=== PATIENT | female | born 1960 | race Caucasian/White ===

== ENCOUNTER 2017-04-03 17:08 | Inpatient (IN) | payer OTHER ==
[~2017-04-03] VITALS: Ht 154.9 cm; Wt 71.4 kg
--- NOTE | 2017-04-03 17:10 | NUR ---
PT BIBA ON PEER AFTER FRIEND CALLED 911 ON PT FOR POSSIBLE SI. PT DENIES SI OR HI. PT STATES SHE WAS AT "[facility]" [facility]ICH IS KNOWN A CRACK HOUSE FOR THE PAST 72 HOURS AND THAT SHE CALLED HER FRIEND JAMARCUS, WHO IS HER FRIEND BUT ALSO HER COUNSELOR. JAMARCUS CALLED 911 AND REPORTED THAT PT WAS SUICIDAL. PT STATES THAT SHE IS ON PROBATION AND HER PO'S NAME IS JOHN. PT IS HYPERVERBAL ON ARRIVAL AND THROUGHOUT CHANGING PROCESS. SITTER AT DOOR. SECURITY PRESENT FOR WANDING AND PT CHANGED INTO BLUE SCRUBS
--- NOTE | 2017-04-03 17:10 | NUR ---
ORIGINAL PEER PLACED IN LOCK BOX AND COPY PLACED IN CHART
--- NOTE | 2017-04-03 17:30 | NUR ---
DR DOWLING IN ROOM FOR EVALUATION
--- NOTE | 2017-04-03 17:36 | ED GENERAL ADULT ---
History of Present Illness General Chief Complaint: ETOH/Drug Related Complaint Stated Complaint: BIBA ETOH Source: patient, EMS, police Exam Limitations: intoxication Vital Signs & Intake/Output Vital Signs & Intake/Output Vital Signs Date Time Temp Pulse Resp B/P B/P Pulse O2 O2 Flow FiO2 Mean Ox Delivery Rate 04/04 1422 99.9 77 18 130/64 96 / 0845 98.3 82 18 112/74 04/04 0845 98.3 82 15 112/74 100 Room Air 04/04 0645 98.6 67 18 105/55 04/04 0640 98.6 67 18 105/55 96 Room Air 04/04 0445 98.5 72 16 110/65 04/04 0440 98.5 72 16 110/65 94 Room Air 04/04 0245 98.4 80 16 120/76 04/04 0240 98.4 80 16 120/76 95 Room Air 04/03 2234 98.2 84 16 122/76 94 Room Air 04/03 1846 Room Air 04/03 1715 98.2 98 16 124/85 94 Room Air Allergies Coded Allergies: No Known Allergies (04/03/17) Reconcile Medications No Known Home Medications Triage Note: PT BIBA ON PEER FOR SI REPORTED BY FRIEND AND PT HAS BEEN SMOKING CRACK AND DRINKING X72 HOURS. PT DENIES SI OR HI. PT REPORTS RECENT ETOH USE. Triage Nurses Notes Reviewed? yes HPI: Patient brought in by ambulance on a police paper. Patient has been in a crack house with past 3 days small crack. Patient reached out to her friend for help. Her friends were concerned for her safety. Patient denies any suicidal or homicidal ideations but states that she really needs help. Patient states that she is staying at a sober house but people are using heroin there. Patient denies any hallucinations. (JOSEY FLOWERS,CAMRON Reyes) Past History Travel History Traveled to [place] past 21 day No Medical History Any Pertinent Medical History? see below for history Psychiatric: alcohol dependence Surgical History Surgical History: non-contributory Psychosocial History What is your primary language Wolof Tobacco Use: Current Not Daily ETOH Use: heavy use Illicit Drug Use: cocaine Family History Hx Contributory? No (CAMRON DOWLING MD) Review of Systems Review of Systems Constitutional: Reports: no symptoms. EENTM: Reports: no symptoms. Respiratory: Reports: no symptoms. Cardiovascular: Reports: no symptoms. GI: Reports: no symptoms. Genitourinary: Reports: no symptoms. Musculoskeletal: Reports: no symptoms. Skin: Reports: no symptoms. Neurological/Psychological: Reports: no symptoms. Hematologic/Endocrine: Reports: no symptoms. Immunologic/Allergic: Reports: no symptoms. All Other Systems: Reviewed and Negative (JOSEY FLOWERS,CAMRON Reyes) Physical Exam Physical Exam General Appearance: well developed/nourished, alert, awake, anxious, moderate distress Head: atraumatic, normal appearance Eyes: Bilateral: PERRL, EOMI. Ears, Nose, Throat: normal pharynx, normal ENT inspection Neck: normal inspection, supple, full range of motion Respiratory: normal breath sounds, chest non-tender, no respiratory distress, lungs clear Cardiovascular: regular rate/rhythm, normal peripheral pulses Gastrointestinal: normal bowel sounds, soft, non-tender, no organomegaly Back: normal inspection, normal range of motion Extremities: normal inspection, normal capillary refill, normal range of motion, no edema Neurologic/Psych: no motor/sensory deficits, awake, alert, oriented x 3, normal gait, normal mood/affect Skin: intact, normal color Lymphatic: no anterior cervical aurelia Core Measures ACS in differential dx? No CVA/TIA Diagnosis: No Severe Sepsis Present: No Septic Shock Present: No (JOSEY FLOWERS,CAMRON Reyes) Progress Differential Diagnoses I considered the following diagnoses in my evaluation of the patient: [Alcohol intoxication, crack abuse, electrolyte abnormality] Plan of Care: Orders Procedure Date/time Status Regular Diet 04/04 B Active Admit to inpatient psych 04/04 1457 Active Continuous Observation Monitor 04/04 0400 Active CIWA 04/04 0244 Active Continuous Observation Monitor 04/04 0000 Active Continuous Observation Monitor 04/03 1835 Active ED CRISIS PSYCH CONSULT 04/03 1835 Active URINE DRUGS OF ABUSE 04/03 1748 Complete HUMAN BETA HCG SCREEN 04/03 1748 Complete ETHANOL 04/03 1748 Complete COMPREHENSIVE METABOLIC PANEL 04/03 1748 Complete CBC WITHOUT DIFFERENTIAL 04/03 1748 Complete Laboratory Tests 04/03/17 1904: Urine Opiates Screen < 100.00, Methadone Screen 50, Barbiturate Screen < 60, Ur Phencyclidine Scrn < 6.00, Amphetamines Screen 124, U Benzodiazepines Scrn < 85, Urine Cocaine Screen > 1000 H, Urine Cannabis Screen < 5.00 04/03/17 1840: Anion Gap 18 H, Estimated GFR > 60, BUN/Creatinine Ratio 13.3, Glucose 91, Calcium 9.3, Total Bilirubin 1.0, AST 158 H, ALT 208 H, Alkaline Phosphatase 118, Total Protein 8.8 H, Albumin 5.2 H, Globulin 3.6, Albumin/Globulin Ratio 1.4, Total Beta HCG NEGATIVE, CBC w Diff NO MAN DIFF REQ, RBC 5.43 H, MCV 87.0, MCH 29.2, RDW 13.4, MPV 7.6, Gran % 62.4, Lymphocytes % 30.8, Monocytes % 5.4, Eosinophils % 0.8, Basophils % 0.6, Absolute Granulocytes 7.7 H, Absolute Lymphocytes 3.8 H, Absolute Monocytes 0.7 H, Absolute Eosinophils 0.1, Absolute Basophils 0.1, PUBS MCHC 33.5, Serum Alcohol 259.0 7:20 AM Patient signed out to me by Dr. Mahoney. Pending crisis evaluation. (JANET TELLEZ MD) Initial ED EKG: none Hand-Off Endorsed To: DONELL MAHONEY MD Endorsed Time: 0100 Pending: consult (CAMRON DOWLING MD) Hand-Off Endorsed To: JANET TELLEZ MD Endorsed Time: 0700 Pending: consult (DONELL MAHONEY MD) Departure Departure Disposition: STILL A PATIENT Condition: Stable Departure Forms: Customer Survey General Discharge Information Prescriptions: Current Visit Scripts No Known Home Medications (CAMRNO DOWLING MD) Departure Time of Disposition: 1456 Clinical Impression Primary Impression: Cocaine abuse Secondary Impressions: Alcohol intoxication, Depressed Psych Admission Note Psychiatric Admission: I have seen and evaluated TERESA STAPLETON. I have also reviewed all the pertinent lab results and diagnostic results. TERESA STAPLETON will be admitted to our inpatient Psychiatric unit for treatment and care. (JANET TELLEZ MD) Critical Care Note Critical Care Note Critical Care Time: non-applicable (CAMRON DOWLING MD)
--- NOTE | 2017-04-03 18:30 | NUR ---
DR DOWLING IN ROOM FOR MAYUR
--- NOTE | 2017-04-03 18:40 | NUR ---
LABS DRAWN AND SENT (SST,LAV)
--- NOTE | 2017-04-03 18:46 | NUR ---
PT MEDICATED WITH ATIVAN 2MG PO PT REMAINS HYPERVERBAL. SITTER AT DOOR.
[2017-04-03 19:04] LABS: ABSOLUTE BASOPHIL COUNT 0.1 /CUMM (0.0-0.2); ABSOLUTE EOSINOPHIL COUNT 0.1 /CUMM (0.0-0.7); ABSOLUTE GRANULOCYTE CT 7.7 /CUMM (1.4-6.5); ABSOLUTE LYMPH COUNT 3.8 /CUMM (1.2-3.4); ABSOLUTE MONOCYTE COUNT 0.7 /CUMM (0.10-0.60); BASOPHIL % 0.6 % (0.0-2.0); EOSINOPHIL % 0.8 % (0-5); GRANULOCYTE % 62.4 % (42.2-75.2); HEMATOCRIT 47.2 % (37-47); MEAN CORPUSCULAR HGB 29.2 PG (27.0-31.0); MEAN CORPUSCULAR HGB CONC 33.5 G/DL (33.0-37.0); MEAN PLATELET VOLUME 7.6 FL (7.4-10.4); PLATELET COUNT 291 /CUMM (130-400); RBC DISTRIBUTION WIDTH 13.4 % (11.5-14.5); RED BLOOD CELL CT 5.43 /CUMM (4.20-5.40); WHITE BLOOD CELL COUNT 12.3 /CUMM (4.8-10.8)
--- NOTE | 2017-04-03 19:32 | NUR ---
PT ASLEEP AT THIS TIME ON HER LEFT SIDE, FACING DOOR. RESPIRATIONS EQUAL AND UNLABORED. SITTER AT DOOR.
--- NOTE | 2017-04-03 20:25 | ED PSY CRISIS COLLATERAL NOTE ---
Collateral Note Collateral Note Family/Inform/Lois Contacts: A Crisis consult was received, however the patient has a BAL of .259 and is not appropriate for interview at this time. SW attempted to speak with her next of kin, Diaz Hickman ([phone]), however there was no answer and the voicemail was full.
--- NOTE | 2017-04-03 20:25 | NUR ---
PAZ met with the patient briefly to explain the process and to inform her that her labs were pending. She was made aware that there was a potential for her to be held overnight for evaluation in the AM, given the PEER and statements about harming herself, she verbalized understanding. PAZ went back to her room to confirm that given her, BAL she would not be evaluated this evening, however she was sleeping. Case discussed with DR. Salinas and MYRON Rivas.
--- NOTE | 2017-04-03 21:21 | NUR ---
PT ASLEEP AT THIS TIME. RESPIRATIONS EQUAL AND UNLABORED. SITTER AT DOOR.
--- NOTE | 2017-04-03 22:01 | NUR ---
PT ASLEEP AT THIS TIME. SITTER AT DOOR. PT'S RESPIRATIONS EQUAL AND UNLABORED.
--- NOTE | 2017-04-03 23:41 | NUR ---
PT SLEEPING. REGULAR RESPIRATIONS NOTED
[2017-04-04] VITALS (8 sets, daily range): BP systolic 105–128; BP diastolic 55–79
--- NOTE | 2017-04-04 02:01 | NUR ---
PT CONTINUES TO SLEEP. SITTER REMAINS IN ATTENDANCE
--- NOTE | 2017-04-04 04:05 | NUR ---
PT CONTINUES TO SLEEP. SITTER IN ATTENDANCE
--- NOTE | 2017-04-04 06:10 | NUR ---
PT SLEEPING, SITTER IN ATTENDANCE
--- NOTE | 2017-04-04 06:50 | NUR ---
VSS. PT SLIGHTLY TREMULOUS AND SWEATY. MEDICATED WITH 2 MG ATIVAN PO
--- NOTE | 2017-04-04 07:53 | NUR ---
PT SLEEPING QUIETLY, EVEN CHEST RISE AND FALL NOTED, PT ATE ONE HALF OF A BANANA ON FINGER FOODS TRAY - SANDWICH LEFT AT BEDSIDE IN CASE PATIENT WOULD LIKE TO FINISH WHEN SHE WAKES UP FOR THE MORNING.
--- NOTE | 2017-04-04 08:54 | NUR ---
PT AWAKE AND ALERT, CRISIS TO BEDSIDE TO EVAL, BREATHALYZER AT 0.00, NO S/S OF WITHDRAWAL NOTED.
--- NOTE | 2017-04-04 09:19 | NUR ---
PT SLEEPING QUIETLY, EASILY AROUSABLE, PT CALM AND COOPERATIVE, PT REPORTING SHE "DOESNT REALLY DRINK THAT MUCH I JUST DID THE OTHER DAY" PT DENIES ETOH ON A DAILY BASIS, REPORTING "IM JUST DEPRESSED".
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
--- NOTE | 2017-04-04 11:31 | NUR ---
PT SLEEPING QUIETLY, CRISIS WORKING ON PT'S POC. PT DENIES ANY ADDTL NEEDS AT THIS TIME.
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
--- NOTE | 2017-04-04 14:58 | NUR ---
REPORT TO YULISA SANCHES, CP [facility] REQUESTING PT BE SENT DOWN AT 3:30
--- NOTE | 2017-04-04 18:42 | NUR ---
PT ADMITTED TO CPS AFTER APPARENTLY MAKING A SUICIDAL STATEMENT TO HER [facility] GROCERY BUYER ILIANA. PT DENIED MAKING STATEMENT AND THEN SAID, "MAYBE I DID, BUT I DON'T REMEMBER." "I'M NOT DEPRESSED AT ALL." SHE REPORTED ANXIETY A "7" ON A SCALE OF 1-10 WITH 10 BEING WORST. DEPRESSION "THE LOWEST... 1" ON SCALE OF 1-10. PT DENIED PRESENT OR PAST SI/THOUGHTS OF SELF HARM. PT OFTEN VAGUE DURING INTERVIEW AND DENIED OR GAVE LIMITED INFORMATION REGARDING HX. PT REPORTED THAT SHE HAD BEEN CLEAN AND SOBER "FOR THE PAST THREE WEEKS UNTIL YESTERDAY" AND CLAIMS SHE DOES NOT KNOW WHY SHE WAS DCD FROM SOBER LIVING HOUSE WHERE SHE HAS BEEN RESIDING FOR PAST THREE WEEKS. PT REPORTED SHE DRANK "HALF PINT OF PEPPERMINT SCHNAPPES" AND AFTER DENYING COCAINE USE FOR "OVER 30 YEARS, SHE ADMITTED TO SMOKING CRACK WELL. VSS. NO SOMATIC C/O. PT NOT CURRENTLY SCORING ON CIWA.
--- NOTE | 2017-04-04 22:26 | History & Physical ---
General Information and HPI MD Statement: I have seen and personally examined TERESA STAPLETON and documented this H&P. The patient is a 56 year old F who presented with a patient stated chief complaint of [suicidal ideation]. Source of Information: patient Exam Limitations: no limitations History of Present Illness: 56 yo F with h/o untreated Hep C, alcohol dependence, is admitted to Inpatient psychiatry for suicidal ideation, alcohol and cocaine abuse disorder. Please refer to Psych H and P for details. Patient denies any medical problems and is not on any daily prescription medications. She currently denies chest pain, dyspnea, palpitations, GI or symptoms. Allergies/Medications Allergies: Coded Allergies: No Known Allergies (04/03/17) Home Med list No Known Home Medications Compliance With Home Meds: UNKNOWN Past History Travel History Traveled to [facility] past 21 day No Medical History Neurological: NONE EENT: NONE Cardiovascular: NONE Respiratory: Lung nodule found on CXR 12/2016 at [facility]. Pt has not had evaluated. Gastrointestinal: NONE Hepatic: hepatitis C, HCV, etiology UNK, but blood transfusion 1988; Diagnosed 2003. Not treated. Renal: NONE Musculoskeletal: NONE Psychiatric: alcohol dependence, anxiety Endocrine: NONE Blood Disorders: NONE Cancer(s): NONE MEDICAL CLAIMS ASSISTANT/Reproductive: 2 terminated pregnancies; Last menstrual period over 1 year ago History of MRSA: No History of VRE: No History of CDIFF: No Isolation History: Standard Surgical History Surgical History: ectopic Past Family/Social History Family History Relations & Conditions if any MOTHER (Lung cancer, alcohol abuse). Psychosocial History Where do you live? Long Term Who Do You Live With? self Services at Home: None Primary Language: Polish Smoking Status: Never Smoked ETOH Use: heavy use Illicit Drug Use: cocaine Functional Ability ADLs Independent: dressing, eating, toileting, bathing. Ambulation: independent IADLs Independent: shopping, telephone, transportation, medication admin. 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 EENTM: Reports: no symptoms. Cardiovascular: Denies: chest pain, palpitations, peripheral edema. Respiratory: Denies: cough, short of breath, sputum production. GI: Denies: abdominal pain, diarrhea, nausea, vomiting. Genitourinary: Denies: dysuria, frequency, hematuria. Musculoskeletal: Reports: no symptoms. Neurological/Psychological: Reports: see HPI. All Other Systems: Reviewed and Negative Exam & Diagnostic Data Last 24 Hrs of Vital Signs/I&O Vital Signs Date Time Temp Pulse Resp B/P B/P Pulse O2 O2 Flow FiO2 Mean Ox Delivery Rate 04/04 2129 73 16 126/79 04/04 1817 73 108/64 04/04 1628 98.1 87 128/57 04/04 1627 98.1 87 128/57 04/04 1422 99.9 77 18 130/64 96 04/04 0845 98.3 82 18 112/74 04/04 0845 98.3 82 15 112/74 100 Room Air 04/04 0645 98.6 67 18 105/55 04/04 0640 98.6 67 18 105/55 96 Room Air 04/04 0445 98.5 72 16 110/65 04/04 0440 98.5 72 16 110/65 94 Room Air 04/04 0245 98.4 80 16 120/76 04/04 0240 98.4 80 16 120/76 95 Room Air Intake & Output 04/05 0800 04/05 0000 04/04 1600 Intake Total Output Total Balance Patient 157 lb Weight Physical Exam General Appearance Alert, Oriented X3, Cooperative, No Acute Distress Skin No Significant Lesion HEENT Atraumatic, PERRLA, EOMI Neck Supple Cardiovascular Regular Rate, Normal S1, Normal S2, No Murmurs Lungs Clear to Auscultation, Normal Air Movement Abdomen Normal Bowel Sounds, Soft, No Tenderness Neurological Exam Findings: Normal Gait, Normal Speech, Normal Tone, Sensation Intact, Cranial Nerves 3-12 NL, Reflexes 2+ Cranial Nerves II through XII: Grossly intact Extremities No Edema, Normal Pulses, No Tenderness/Swelling Last 24 Hrs of Labs/Rao: Laboratory Tests 04/03 04/03 1904 1840 Chemistry Sodium (137 - 145 mmol/L) 145 Potassium (3.5 - 5.1 mmol/L) 4.2 Chloride (98 - 107 mmol/L) 101 Carbon Dioxide (22 - 30 mmol/L) 25 Anion Gap (5 - 16) 18 H BUN (7 - 17 mg/dL) 12 Creatinine (0.5 - 1.0 mg/dL) 0.9 Estimated GFR (>60 ml/min) > 60 BUN/Creatinine Ratio (7 - 25 %) 13.3 Glucose (65 - 99 mg/dL) 91 Calcium (8.4 - 10.2 mg/dL) 9.3 Total Bilirubin (0.2 - 1.3 mg/dL) 1.0 AST (14 - 36 U/L) 158 H ALT (9 - 52 U/L) 208 H Alkaline Phosphatase (<127 U/L) 118 Total Protein (6.3 - 8.2 g/dL) 8.8 H Albumin (3.5 - 5.0 g/dL) 5.2 H Globulin (1.9 - 4.2 gm/dL) 3.6 Albumin/Globulin Ratio (1.1 - 2.2 %) 1.4 Vitamin B12 (239 - 931 pg/mL) 886 Folate (2.76 - 20.0 ng/mL) 16.1 TSH (0.270 - 4.200 uIU/mL) 1.580 Free T4 (0.64 - 1.79 ng/dL) 1.50 Thyroxine (T4) (4.5 - 10.9 ug/dL) 13.9 H Total Beta HCG (NEGATIVE) NEGATIVE Hematology CBC w Diff NO MAN DIFF REQ WBC (4.8 - 10.8 /CUMM) 12.3 H RBC (4.20 - 5.40 /CUMM) 5.43 H Hgb (12.0 - 16.0 G/DL) 15.8 Hct (37 - 47 %) 47.2 H MCV (81.0 - 99.0 FL) 87.0 MCH (27.0 - 31.0 PG) 29.2 RDW (11.5 - 14.5 %) 13.4 Plt Count (130 - 400 /CUMM) 291 MPV (7.4 - 10.4 FL) 7.6 Gran % (42.2 - 75.2 %) 62.4 Lymphocytes % (20.5 - 51.1 %) 30.8 Monocytes % (1.7 - 9.3 %) 5.4 Eosinophils % (0 - 5 %) 0.8 Basophils % (0.0 - 2.0 %) 0.6 Absolute Granulocytes (1.4 - 6.5 /CUMM) 7.7 H Absolute Lymphocytes (1.2 - 3.4 /CUMM) 3.8 H Absolute Monocytes (0.10 - 0.60 /CUMM) 0.7 H Absolute Eosinophils (0.0 - 0.7 /CUMM) 0.1 Absolute Basophils (0.0 - 0.2 /CUMM) 0.1 PUBS MCHC (33.0 - 37.0 G/DL) 33.5 Serology Hepatitis A IgM Ab (NONREACTIVE) Pending Hep Bs Antigen (NONREACTIVE) Pending Hep B Core IgM Ab Conf (NONREACTIVE) Pending Hepatitis C Antibody (NONREACTIVE) Pending Toxicology Urine Opiates Screen (>2000 NG/ML) < 100.00 Methadone Screen (>300 NG/ML) 50 Barbiturate Screen (>200 NG/ML) < 60 Ur Phencyclidine Scrn (>25 NG/ML) < 6.00 Amphetamines Screen (>1000 NG/ML) 124 U Benzodiazepines Scrn (>200 NG/ML) < 85 Urine Cocaine Screen (>300 NG/ML) > 1000 H Urine Cannabis Screen (>50 NG/ML) < 5.00 Serum Alcohol (<10 MG/DL) 259.0 Diagnostic Data EKG Results -- CXR Results -- Assessment/Plan Assessment: 56 yo F with h/o untreated Hep C (2/2 blood transfusion), is admitted for suicidal ideation, depression, alcohol and cocaine use disorder. 1. Continue management per Psych team. 2. Transaminitis in the setting of alcohol use and h/o Hep C. Check hepatitis panel. She should have outpatient GI follow up for her Hep C and should also get an ultrasound of abdomen. 3. Lung nodule ?CXR - being followed at [place]. 4. Leukocytosis likely reactive. DVT ppx low risk, early ambulation. As Ranked By This Provider Problem List: 1. Cocaine abuse 2. Alcohol intoxication 3. Depressed Miscellaneous Miscellaneous Documentation Attending Case Discussed With: Bri Thomas Primary Care Physician: PATIENT HAS NO PRIMARY CARE DR Patient sees these Specialists -- Level of Patient Care: JOHANA Sanchez Attending MD Review Statement Attending Statement Attending MD Statement: examined this patient, discuss w/resident/PA/BIN WORKER
--- NOTE | 2017-04-04 22:27 | Admission Certification ---
Admission Certification Certification Statement - As attending physician, I certify that at the time of - admission, based on clinical presentation, severity of - symptoms, need for further diagnostic testing and - therapeutic interventions, and risk of adverse outcomes - without in-hospital treatment, in my clinical assessment, - this patient requires an acute hospital stay for a minimum - of two nights or longer. I have also considered psychsocial - factors such as support system, advanced age, financial - issues, cognitive issues, and failed out-patient treatments, - past re-admission history, safety of patient, and lack of - compliance as applicable. Specific rationale supporting this admission is: Suicidal ideation, alcohol and cocaine abuse disorder.
[2017-04-05] VITALS (10 sets, daily range): BP systolic 109–130; BP diastolic 63–79
--- NOTE | 2017-04-05 05:04 | NUR ---
SLEPT WELL, NO CIWA SCORING
--- NOTE | 2017-04-05 13:31 | NUR ---
PT IS PRESENT WITHIN THE COMMUNITY AND APPROPRIATE WITH PEERS AND STAFF, ENCOURAGED TO REFLECT ON REASONS LEADING TO ADMISSION AND ALSO HYDRATE, ETC. PT WAS TEARFUL WHEN DISCUSSING BEING ON CPS AND WANTING/TRYING TO GET HER LIFE IN ORDER BUT FELT SHE WAS NOT HEARD WHEN SHE ORIGINALLY VOICED CONCERNS (PRIOR TO ARRIVAL), OVERALL MOOD IS CONGRUENT WITH CURRENT CIRCUMSTANCES HOWEVER PT DOES APPEAR MOTIVATED AND HOPEFULLY FOR THE FUTURE, IS RESPECTFUL, CALM, COOPERATIVE AND COMPLIANT WITH THE UNIT. VITAL SIGNS ARE STABLE, TENDED TO ADLS, ATTENDED GROUPD AND REPORTED + MOOD/SLEEP BUT CONCERNED WITH LIVING SITUATION HOWEVER IS IN CONTACT WITH SPONSER & IS LOOKING FORWARD TO DISCUSSING ALL THE ABOVE WITH THE ENTIRE TREATMENT TEAM ON FRIDAY.
--- NOTE | 2017-04-05 15:32 | CPS MD/APRN INITIAL ASSE PSYCH ---
Psychiatric Admission Fiberglass Insulation Installer's Note Reviewed: Yes Patient Seen and Examined: Yes Identifying Information: 56 y/o SCF with history of alcohol and crack cocaine abuse ZORAN Chief Complaint: "I was at a sober house that wasn't!" Reaction to Hospitalization: Ambivalent History of Present Illness Onset of Illness: Chronic alcohol use Circumstances Leading to Admission: Per LIQUOR BRIDGE OPERATOR intake note: "56 F BIBA on [place] [employer] PEER on 04/03/17, after her [facility] case management director, Meg Christiansen, [phone], called EMS after the patient told her she wanted to harm herself. The PEER states that the patient made a suicidal statement, was irritable, rambling and had not slept. The patient admitted to using alcohol and crack cocaine." BAL on arrival was >0.250 Patient says that she was not suicidal however wanted to do whatever she could to get out of [facility] as she says many others are using drugs there and it is not a comfortable environment for her. Problem(s) Justifying Need for Admission: Suicidal ideation, poor coping, substance relapse Past Psychiatric History Past Diagnosis(es)- if any: Alcohol use disorder cocaine use disorder unspecified depressive disorder Past Precipitating Factors- if any: substance use, psychosocial dysfunction - Include inpatient and outpatient treatment Treatment History: Recently treated inpatient at [facility] last year for EtOH. Denies previous inpatient psych treatment +outpatient treatment, currently sees counselor at [facility], previously at [facility] 10 years ago History of Suicide Attempts or Gestures Denies Substance Abuse History: Chronic alcohol use REports previous crack cocaine use Allergies: Coded Allergies: No Known Allergies (04/03/17) Home Med List: Denies any home meds - Include any medical condition(s) that may - impact the patient's recovery/remission Past Medical History: HCV Past History Medical History Neurological: NONE EENT: NONE Cardiovascular: NONE Respiratory: Lung nodule found on CXR 12/2016 at [facility]. Pt has not had evaluated. Gastrointestinal: NONE Hepatic: hepatitis C, HCV, etiology UNK, but blood transfusion 1988; Diagnosed 2003. Not treated. Renal: NONE Musculoskeletal: NONE Psychiatric: alcohol dependence, anxiety Endocrine: NONE Blood Disorders: NONE Cancer(s): NONE TESTER REGULATOR/Reproductive: 2 terminated pregnancies; Last menstrual period over 1 year ago History of MRSA: No History of VRE: No History of CDIFF: No Isolation History: Standard Surgical History Surgical History: none Psychiatric Family/Social Hx Family History Psychiatric Illness: Denies psych FH Substance Use: +EtOH in both parents Suicides: Denies Other Family History: [facility]. Placed in foster home for early life age 6-14 then reunited with mom. Violence between parents. Social History Living Situation: Most recently at [facility] in [place]. Says this was a horrible place to live and others are using drugs there constantly. Significant Relationships (family/friends): Denies any Education: HS/GED Vocation/Occupation: Unemployed Legal: Currently on probation. Prob officer is Travis Devonte, . Per Joi note: "She had been incarcerated in Mar, 2016 for 30 days and again from June to August, both for violating a protection order. She had also been in intermediate from December, to January 24, 2017 for a probation violation" Healthly Behaviors Screening Tobacco Screening Tobacco Use from ED Docu: Current Not Daily - If tobacco counseling indicated - the following topics are required. - #1 Recognizing dangerous situations. - #2 Coping Skills. - #3 Basic information about quitting. Status of Tobacco Cessation Counseling: #1, #2 AND #3 Completed Cessation Med Status Not Applicable (denies needing cessation meds) Alcohol Screening - ETOH screen POS if BAL >=80 or Audit-C>= M4/F3 Audit-C Score from Diag Assess: 12 Blood Alcohol Level: Laboratory Tests 04/03 1840 Toxicology Serum Alcohol (<10 MG/DL) 259.0 Alcohol Use Screening Results: Pos per Audit C &/or BAL - If ETOH counseling indicated - the following topics are required. - #1 Express concern about the patient's - drinking at unhealthy levels, include informing - of national norms for moderate drinking: - men <= 14 drinks/week, max 4 drinks/occasion - women <= 7 drinks/week, max 3 drinks/occasion - #2 Providing feedback, including linking alcohol to - negative physical effects (liver injury, hypertension) - negative emotional effects (relationship problems and - depression) - negative occupational consequences (reduced work - performance) - #3 Advising the patient to abstain from alcohol or - to drink below national norms for moderate drinking - (as listed above). Status of ETOH Use Counseling: #1, #2 AND #3 Completed. Metabolic Screening - Screen if on a Neuroleptic Medication - Metabolic screening should include: - Blood Pressure, BMI, Glucose or Hgb A1c, & a - Lipid profile from within the past 365 days. Metabolic Screening () Not Applicable, patient not on a neuroleptic. Exam and Plan Mental Status Examination Ambulation Status: STable Appearance: Disheveled Attitude towards examiner: Pleasant and cooperative Psychomotor activity: Normal Behavior: WNL Quality of speech: WNL Affect: Mildly dysthymic Mood: "Frustrated" Suicidal Ideation: Denies Homicidal Ideation: denies Hallucinations: denies Paranoid/Delusional Material: none Difficulties with thought organization: none evidenced Insight: limited Judgment: limited Orientation: to person, place, date, and situation Cognition: grossly intact Memory Function: intact Estimate of intellectual functioning: average Assets/Strengths Patient Identified Assets/Strengths: would like to resume sobriety Impression/Plan Impression and Plan: 56 y/o CF with chronic alcohol use disorder, intermittent crack cocaine use, and unspecified depressive disorder, recently treated at [facility] for EtOH, reports suicidal statement and relapse in the context of desiring to leave her current living situation at [facility]. - Include all active medical diagnosis that require tx DSM 5 Diagnosis(es): Alcohol use disorder, severe Cocaine use disorder, moderate Unspecified depressive disorder - Initial Tx Plan for Active Psych & Medical Conditions Treatment Plan: -admit CPS, 15 minute checks -monitor for alcohol withdrawal though unlikely given her report of only a day or two of relapse -SW assistance regarding living situation -Consider initiation of naltrexone -Identify appropriate aftercare -Needs outpatient primary care and hepatology referral for HCV - Factors that would help patient function - in a less restrictive setting. Factors: Improved mood, enhanced psychosocial supports, identificatino of proper outpatient treatment setting
--- NOTE | 2017-04-05 19:48 | NUR ---
PT HAS BEEN IN BED FOR MOST OF THE DAY. SHE IS PLEASANT AND TALKS TO STAFF WHEN APPROACHED AND DURING VITALS. HAS BEEN COMPLIANT, MOSTLY WITHDRAWN AND ISOLATIVE. PT HAS NOT REPORTED ANY THOUGHTS OF SI AT THIS TIME.
[2017-04-06] VITALS (9 sets, daily range): BP systolic 117–138; BP diastolic 73–92
--- NOTE | 2017-04-06 12:59 | CP SOUTH PROGRESS NOTE PSYCH ---
Psych (Inpt) Progress Note Progress Note Include the following elements, when applicable: Involvement in the active treatment of the patient with behavioral observations of the patient and the patient's response to the treatment. Review of the ongoing treatment process in the context of the treatment plan. Indication of how multi-disciplinary staff members are carrying out the treatment plan. Plans for future interventions and recommendations for revision of the treatment plan. Liaison with other physicians/providers. Progress Note: Chart reviewed, progress d/w nursing staff. Interviewed patient this morning. She has become increasingly ruminative regarding her "stuff being stolen from the sober house". Can't seem to get past this or identify anything positive in her life. "I'm not really sure why I'm here". Reports depressive symptoms that she attributes to "nobody helping me out there". When I pressed her to define exactly what "helping you" would look like, she identifies her desire to obtain her own apartment outside of [place] (she feels very unsafe in [place]) and get a job. She denies overt SI or HI today. Vitals wnl. No new labs. CIWAs minimal. MSE: Poorly groomed CF supine on bed. Cooperative though limited EC. Speech quiet, monotnous. Mood "I'm really not doing good". Affect constricted. TP ruminative. TC focused on her things being stolen from her sober home, Denies SI /HI. Denies perceptual disturbance. Cognition grossly intact. I/J limited. A/P: As Madison continues to distance herself from her last use of EtOH and cocaine she seems to be presenting with a highly ruminative/anxious depression. If this picture continues as observation period lengthens would consider pharmacotherapy options for her. Will also reduce CIWAs to Q4WA.
--- NOTE | 2017-04-06 13:15 | NUR ---
PT HAS BEEN COMPLIANT AND COOPERATIVE WITH UNIT RULES. PT HAS BEEN ISOATLIVE IN ROOM FOR MOST OF THE SHIFT. PT MOOD IS STABLE WITH A FLAT AFFECT. PT REPORTS FEELING "SAD" TODAY AND NOT BEING USED TO THIS FEELING. PT DENIES SI THOUGHTS.
--- NOTE | 2017-04-06 19:52 | NUR ---
PT HAS BEEN IN BED FOR THE MAJORITY OF THE SHIFT. SHE CAN APPEAR CONFUSED AT TIMES NOT KNOWING WHAT TIME IT IS OR WHAT SHE RECENTLY DID. SHE WAS ENCOURAGED TO TRY TO GET OUT OF BED AND WAKE UP SO THAT COULD REORIENT HERSELF BUT DID NOT. SHE APPEARS FLAT AND CONSTRICTED BUT IS PLEASANT AND COMPLIANT. PT DENIES ANY THOUGHTS OF SI AT THIS TIME.
[2017-04-07] VITALS (8 sets, daily range): BP systolic 113–126; BP diastolic 70–98
--- NOTE | 2017-04-07 10:45 | CP SOUTH PROGRESS NOTE PSYCH ---
Psych (Inpt) Progress Note Progress Note Reva record reviewed, BP 122/87, pulse 72, Temp 97.9 No new Labs Sleep log showed that Madison slept well. Interviewed patient this morning. Background: "56 F BIBA on [place] [employer] PEER on 04/03/17, after her [facility] caser in, Meg Christiansen, [phone], called EMS after the patient told her she wanted to harm herself. The PEER states that the patient made a suicidal statement, was irritable, rambling and had not slept. The patient admitted to using alcohol and crack cocaine." Diagnoses of Record: Alcohol use disorder, severe Cocaine use disorder, moderate Unspecified depressive disorder Mental State: Pleasant White female, not in apparent distress, denied withdrawal symptoms, alert, oriented, calm and cooperative. Reported anxiety and depressive symptoms because she was very unhappy at the sober house that she was at (in [place]) She denied thoughts of suicide, violence or homicide Speech quiet, normal rate, affect was euthymic, smiled appropriately, worried about her belongings at the sober house Coherent, no delusions, denies perceptual disturbance. No evidence or memory deficits Seemed to have good insight into her difficulties and good judgment A/P: No withdrawals, difficulty sleeping, anxious Discussed her medications and options We agreed on the following: Add Gabapentin 600 mg at bedtime
--- NOTE | 2017-04-07 13:33 | NUR ---
STILL SPENDING MAJORITY OF TIME IN ROOM. HAS BEEN OUT JUST A LITTLE MORE THAN THAN YESTERDAY AND OFFERED GREETING SPONTANEOUSLY THIS MORNING. MOOD IS STABLE, EUTHYMIC TO BLUNTED AFFECT. DENIED THOUGHTS OF SELF HARM WHEN ASKED
--- NOTE | 2017-04-07 19:13 | NUR ---
PT IS CALM, COOPERATIVE WITH STAFF AND PEERS, AND COMPLIANT WITH UNIT RULES. BOTH IN AND OUT OF MILIEU, AT TIMES APPEARSING LETHRGIC AND SLEEPING IN PT ROOM. CAN AT TIMES BE SLIGHTLY ISOLATIVE/WITHDRAWN. MOOD IS STABLE, COMMUNICATION IS ORGANIZED AND APPEARS NORMAL IN ALL RESPECTS, AMD APPETITE IS NORMAL. PT DENIES SI AT THIS TIME.
--- NOTE | 2017-04-08 05:59 | NUR ---
PT SLEPT. PT DENIES SI.
[2017-04-08 07:42] VITALS: BP 129/77
[2017-04-08 12:47] VITALS: BP 111/70
[2017-04-08 12:55] VITALS: BP 111/20
--- NOTE | 2017-04-08 13:50 | NUR ---
PT IS TAKING HER MEDS AND ATTENDING GROUPS. SHE VERBALIZES FEELING OVERWHELMED WITH HER LIFE AND WORRIES ABOUT GETTING INTO A PROGRAM AND NOT HAVING TO RETURN FOR MORE [facility] TIME. SHE DENIED SUICIDAL THOUGHTS WHEN ASKED. SHE IS CALM AND APPROPRIATE WITH STAFF AND PEERS
--- NOTE | 2017-04-08 15:48 | SOCIAL WORKER TX PLAN PSYCH ---
Treatment Plan - Please Document: - Evidence that there is ongoing collaboration between - the patient and the interdisciplinary team, - including the patient's active participation and - responsibility for engaging in the treatment regimen, - and that the treatment plan is individualized and - relevant to the patient's conditions. - Treatment plan should reflect documentation indicating - that all active therapeutic efforts are included. Strengths/Capabilities: Motivated for treatment. Wishes to go to alcohol rehab and resume AA with her sponsor. Physical Limitations (Interventions): None Patient Identified Trmt Goals: "I need to go to a different sober house" Discharge Plan: Sober House and IOP Problem/Goals #1 Problem #1: suicidal ideation Goal (Short Term): patient will identify triggers to recent SI Goal (Jail): patient will demonstrate future oriented thinking and no longer be having thoughts of self harm. Interventions: patient will be offered medication management with the psychiatrist, groups on symptom management, coping skills, focus group, goals group, relaxation, accupuncture. Washer Engineer will assess mood and thoughts daily. Washer Engineer will assist with exploring Sober Houses and aftercare planning. transfer worker will coordinate with probation. Problem/Goals #2 Problem #2: alcohol dependence/abuse Goal (Short Term): patient will explore triggers to relapse Goal (Jail): patient will identify a relapse prevention plan Interventions: patient will be offered groups on relapse prevention, AA meetings, coping skills. Washer Engineer will explore environmental changes such as other sober living options. DSM5/PS Stressors/Medical Prob Diagnosis' (DSM 5, Stressors, Medical): F32.9 Unspecified Depressive D/O F10.20 Alcohol use disorder F14.10 Cocaine use disorder Current GAF: 28 Treatment Team - Responsibilities of members of the treatment team include: - Medication Management- MD or MEETING PLANNER - Medication Administration and Monitoring- Nurse - Group Therapy- Occupational Therapist - 1:1 Therapy,Disch Planning,family involvement-Washer Engineer
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
[2017-04-08 16:29] VITALS: BP 125/77
[2017-04-08 16:32] VITALS: BP 125/77
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
--- NOTE | 2017-04-08 19:15 | NUR ---
PT IS CALM, COOPERATIVE WITH STAFF AND PEERS, AND COMPLIANT WITH UNIT RULES. SPENDING TIME BOTH IN AND OUT OF [place]IE[place]. WHILE IN MILIEU IS INTERACTING WELL WITH OTHERS. MOOD IS STABLE, AFFECT IS EUTHYMIC TO FULL RANGE, COMMUNICATION IS ORGANIZED AND APPEARS NORMAL IN ALL RESPECTS, AND APPETITE IS NORMAL. PT DENIES SI AT THIS TIME.
[2017-04-08 20:39] VITALS: BP 135/79
[2017-04-09] VITALS (8 sets, daily range): BP systolic 96–124; BP diastolic 60–92
--- NOTE | 2017-04-09 13:11 | NUR ---
PT IS COMPLIANT AND COOPERATIVE WITH UNIT RULES. PT MOOD IS STABLE WITH A FULL RANGE AFFECT. PT IS OUT IN THE COMMUNITY INTERACTING WELL WITH STAFF AND PEERS. PT IS ATTENDING GROUPS. PT REPROTS SOME ANXIETY OVER DISCHARGE AND LIVING SITUATION BUT IS WOKRING ON A PLAN. PT DENIES SI THOUGHTS.
--- NOTE | 2017-04-09 15:00 | SOCIAL WORKER PROG NOTE PSYCH ---
Social Work Progress Note Progress Note Left another voicemail for Officer Devonte (education officer). Madison shared that she called [facility] in [place] and she was informed that they may have a bed available to her. She appeared excited and said she had been calling there for months trying to get in. She also said that the woman that runs it(Janey Rodriguez) may get her things at [facility] for her. I had Madison sign a release and we called to speak with Janey together. Janey told Madison she would poultry picker her belongings. She didn't want her worrying about that. She mentioned that she would have a bed for her on 04/18. She is basically doing Madison a favor by letting her come first without any financial means. They would help her get on basic needs from there. She stated that Madison has been consistent in calling them and working hard and they would like to give her a chance there. Madison is very grateful. She has been wanting to move back that way. Not sure what probation will say, as I have not heard from her PO. Her and I talked about having a plan of somewhere to go before the . She is interested in getting into the [facility] in [place], but she may need to go through 211 to do that. I talked with her about [facility] again, but she is ambivalent. She decided to call [address], but she has been on hold for an hour. I told her she can always call tomorrow morning. She continues to present as somewhat anxious. She keeps apologizing for jumping from topic to topic. She is definetely preoccupied with housing and getting her belongings. She isn't too focused on anything else right now.
--- NOTE | 2017-04-09 18:05 | CP SOUTH PROGRESS NOTE PSYCH ---
Psych (Inpt) Progress Note Progress Note Include the following elements, when applicable: Involvement in the active treatment of the patient with behavioral observations of the patient and the patient's response to the treatment. Review of the ongoing treatment process in the context of the treatment plan. Indication of how multi-disciplinary staff members are carrying out the treatment plan. Plans for future interventions and recommendations for revision of the treatment plan. Liaison with other physicians/providers. Progress Note: PSYCHIATRIST NOTE, 04/09/2017: I discussed this patient's progress to date, current mental status, treatment and discharge planning with staff team today in the daily morning ITTM and also met with her again myself in individual session. Following initial 25mg dose of Zoloft this morning patient said she felt somewhat "not myself" later in the day though she had difficulty describing what she experienced; we decided to continue current dose of Zoloft for another day and not try to increase dose tomorrow morning but wait and see how she sleeps tonight and feels during the day tomorrow. Patient has been working hard on her aftercare and where she is going to live. She got a call back from the director of [facility] in [place], [place] and was offered a bed there but not until 04/18/2017. Patient continues to work with Ms. Sierra to "fill the gap" between when she is discharged from here and will be able to enter [facility]. Apparently, she got the offer at [facility] because she had been calling them consistently and regularly for months about a room there despite all she has been going through recently.
--- NOTE | 2017-04-09 20:13 | NUR ---
PT IS CALM, COOPERATIVE WITH STAFF AND PEERS, AND COMPLIANT WITH UNIT RULES. PT IS OFTEN IN [place], INTERACTING WELL WITH OTHERS. MOOD IS STABLE, AFFECT IS EUTHYMIC TO FULL RANGE, COMMUNICATION IS ORGANIZED AND APPEARS NORMAL IN ALL RESPECTS, AND APPETITE IS NORMAL. PT DENIES SI AT THIS TIME.
[2017-04-10] VITALS (8 sets, daily range): BP systolic 102–130; BP diastolic 64–82
--- NOTE | 2017-04-10 12:19 | SOCIAL WORKER PROG NOTE PSYCH ---
See Addendum Social Work Progress Note Progress Note Madison, Dr. Friedman and I met together. Madison shared that she isn't feeling that well today. Feels jittery, anxious, short of breath. She is thinking maybe it was from the increase in minipress. She would prefer to go back down to the dose she was taking. She stated she felt like crying today. Dr. Friedman will increase the Zoloft she just started. Talked about her symptoms could be anxiety. She has been working hard on her discharge plan calling people. Acknowledged all her work. She said that she talked to Janey Rodriguez from [facility] this morning and she will take her in on Friday. Intitially have her stay on the couch until the bed opens on 04/18. I will confirm this plan with Janey. Madison also shared that her sponsor called her last night and informed her that she picked up her belongings from [email or web address]. Madison was so thankful. She is hoping she can stay through the weekend and discharge Friday to [facility]. Dr. Friedman is in agreement with this plan. She was appreciative of the help. We will most likely use [facility] for transport. She would like to return to [facility] for treatment. I later connected with Janey Rodriguez from [facility] and confirmed this plan. She would like to be informed of an arrival time for Friday. I told her I will have to plan/ coordinate with [facility]. Called [facility] to do the referral. They are familiar with Madison. The next available intake is 04/24 at 9:30am. . .
--- NOTE | 2017-04-10 13:20 | NUR ---
PT IS PLEASANT, CALM, COOPERATIVE AND RESPECTFUL, REPORTED + MOOD/SLEEP AND GOAL WAS TO RELAX AND TALK WITH THE FULFILLMENT COORDINATOR. MOOD IS STABLE WITH FULL RANGE/BRIGHT AFFECT, MOTIVATED AND ACTIVELY ENGAGED IN TREATMENT AND ATTENDING GROUPS, IS PLEASANT AND APPRECIATE OF CARE PROVODED BY CPS.
--- NOTE | 2017-04-10 14:15 | CP SOUTH PROGRESS NOTE PSYCH ---
Psych (Inpt) Progress Note Progress Note Include the following elements, when applicable: Involvement in the active treatment of the patient with behavioral observations of the patient and the patient's response to the treatment. Review of the ongoing treatment process in the context of the treatment plan. Indication of how multi-disciplinary staff members are carrying out the treatment plan. Plans for future interventions and recommendations for revision of the treatment plan. Liaison with other physicians/providers. Progress Note: PSYCHIATRIST NOTE, 04/10/2017: I discussed this patient's progress to date, current mental status, treatment and discharge planning with staff team today in the daily morning ITTM and also Evelyn Partida LCSW, and I met with patient again together in individual session. Patient's affect is brightening, mood improving slowly. She denied experiencing the same "unreal" feeling after taking the Zoloft, 25mg, this morning as she had yesterday, 04/09/2017, and was willing to double dose tomorrow morning, 04/11/2017, to 50mg/day. She is encouraged that she has been accepted for admission to [facility] in [facility], for 04/18/2017, and that the clinical program director there is willing to have her "sleep on her couch," until the bed opens up, beginning on 04/14/2017. Patient also expects to receive her psychiatric follow up at [facility] where she has been treated in the past and very much likes. Patient also spoke about some more negative parts of her life spent at [facility] in [facility]; she had been sent there for a "psychiatric evaluation" though she can't tell me at this time what the circumstances were that lead [facility] to remand her to [facility].
--- NOTE | 2017-04-10 17:51 | NUR ---
PT IS CALM, COOPERATIVE WITH STAFF AND PEERS, AND COMPLIANT WITH UNIT RULES. OFTEN IN MILIEU, INTERACTING WELL WITH OTHERS. MOOD IS STABLE, AFFECT APPEARS EUTHYMIC TO FULL RANGE, COMMUNICATION IS ORGANIZED AND APPEARS NORMAL IN ALL RESPECTS, AND APPETITE IS NORMAL. PT DENIES SI AT THIS TIME.
[2017-04-11] VITALS (8 sets, daily range): BP systolic 105–126; BP diastolic 55–79
--- NOTE | 2017-04-11 07:00 | NUR ---
PT HAPPY TO BE GOING TO A SOBER HOUSE IN [place]. SHE IS HOPING THAT ROAD TO [employer]ERY WILL GIVE HER A RIDE ON FRIDAY TO [place]. MELATONIN AND NEURONTIN PRNs GIVEN AT [phone]. MINIPRESS WAS DECREASED BACK DOWN FROM 5MG TO 3MG. PT STATES SHE DID NOT SLEEP WELL.
--- NOTE | 2017-04-11 09:08 | SOCIAL WORKER PROG NOTE PSYCH ---
Social Work Progress Note Progress Note Faxed referral to [facility] this morning. Called them 2x's to see if she is eligible for machine operator picker Friday and to arrange a time. Madison is reporting high energy today. She stated that she felt like she had 5 Monster drinks. She couldn't fall asleep last night until 2am. Feels increasingly anxious and jittery. She thinks it may be the Zoloft. She said she hasn't had good reactions to antidepressants in the past. She reported that she has been on Zoloft and Prozac. She isn't sure if she needs an antidepressant, she stated she doesn't really feel depressed. She does complain of racing thoughts and states she has difficulty shutting her mind off. She wishes she could organize her thoughts better, versus blurting out things that are on her mind. I told her I will share these concerns with Dr. Friedman. Informed the of Madison's presentation and he decided to discontinue the Zoloft.
--- NOTE | 2017-04-11 13:05 | NUR ---
PT IS COMPLIANT AND COOPERATIVE WITH UNIT RULES. PT IS OUT IN THE COMMUNITY INTERACTING WELL WITH STAFF AND PEERS. PT GOAL THIS MORNING WAS TO BE MORE SOCIAL WITH PEERS AND IN GROUPS WHICH SHE IS DOING. PT MOOD IS STABLE WITH A FULL RANGE AFFECT. PT'S FRIEND DROPPED OFF HER BELONGINGS WHICH ARE NOW IN THE BACK AND SHE FELT, "LESS ANXIOUS" ABOUT HAVING THEM WITH HER. PT DENIES SI THOUGHTS.
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
--- NOTE | 2017-04-11 21:18 | NUR ---
Pt is out in the community most of the shift mood is stable affect is in full range, compliant and cooperative with staff. Pt vital signs are stable appettie is good. No issues noted during the day. Will continue to monitor the pt overnight.
[2017-04-12] VITALS (8 sets, daily range): BP systolic 103–116; BP diastolic 57–74
--- NOTE | 2017-04-12 05:55 | NUR ---
PT APPEARED TO SLEEP BETTER. SHE HAS BEEN SOCIAL. PT WILL PROBABLY DC FRIDAY. PT REPORTS A CALLOUSED AREA ON LEFT BIG TOE.
--- NOTE | 2017-04-12 13:03 | NUR ---
PT IS COMPLIANT AND COOPERATIVE. MOOD IS STABLE WITH A FULL RANGE OF AFFECT. PT DENIES SI AT THIS TIME, C/O PAIN IN BIG TOE. PT CAN BE HYPERVERBAL AND SLIGHTLY DISORGANIZED IN SPPECH AT TIMES- PT SHOWS POSITIVE INSIGHT INTO HER BEHAVIOR THAT IS OFF BASELINE. PT IS PRESENT IN THE COMMUNITY AND INTERACTING WELL WITH PEERS AND STAFF. PT IS ATTENDING GROUPS. VITALS ARE STABLE, APPETITE IS GOOD.
--- NOTE | 2017-04-12 13:43 | CP SOUTH PROGRESS NOTE PSYCH ---
Psych (Inpt) Progress Note Progress Note Include the following elements, when applicable: Involvement in the active treatment of the patient with behavioral observations of the patient and the patient's response to the treatment. Review of the ongoing treatment process in the context of the treatment plan. Indication of how multi-disciplinary staff members are carrying out the treatment plan. Plans for future interventions and recommendations for revision of the treatment plan. Liaison with other physicians/providers. Progress Note: Pt notes that feeling "foggy and tired" with lithium. Amenable to switch to ER at [facility] with the hope this can be resolved as lithium very appropriate choice for this pt. Pt notes cut on big toe. No s/s infection. Will monitor. Denies SI or HI. Denies AVHs. Current Medications Sig/Maribel Start time Last Medication Dose Route Stop Time Status Admin Folic Acid 1 MG 04/05 08 AC 04/12 PO 0821 Gabapentin 300 MG Q6H PRN 04/10 1145 AC 04/10 PO 2335 Gabapentin 300 MG 08,1400 04/09 08 AC 04/12 PO 0821 Gabapentin 600 MG 04/08 220 AC 04/11 PO 2130 Winnie Carbonate 450 MG AT BEDTIME 04/12 2200 AC PO Winnie Carbonate 300 MG 08,04/11 2000 DC 04/12 PO 0821 Melatonin 10 MG AT BEDTIME NEED.. 04/11 1845 AC 04/11 PO 2130 Melatonin 5 MG AT BEDTIME NEED.. 04/10 1130 DC 04/10 PO 2334 Multivitamins 1 TAB 04/05 0800 AC 04/12 PO 0821 Prazosin HCl 4 MG 04/11 2200 AC 04/11 PO 2130 Prazosin HCl 3 MG 04/10 2200 DC 04/10 PO 2121 Thiamine HCl 100 MG 04/05 0800 AC 04/12 PO 0821 Vital Signs Date Time Temp Pulse Resp B/P B/P Pulse O2 O2 Flow FiO2 Mean Ox Delivery Rate 04/12 1226 61 111/74 / 1221 61 111/74 /03 0758 68 103/57 06/03 0753 97.3 68 103/57 06/02 2130 97.5 67 126/79 /1999 97.5 67 126/79 06/02 1954 97.5 67 126/79 06/02 1550 71 110/67 06/02 1535 71 110/67 MSE Appears as stated age. Cooperative behavior, good, appropriate eye contact. Nl speech rate and prosody. No psychomotor retardation or agitation. Mood OK Affect anxious, constricted, appropriate, non-liable. Linear and goal directed thought process. Denies SI or HI. Does not appear to be responding to internal stimuli. Denies AVHs, paranoia, or delusions. I/J: limited A/P: Pt with unspecified mood disorder and AUD with marked irritabilty and implusivity. - Changed lithium to ER 450mg nightly - Will monitor toe for s/s infection - Otherwise continue meds - CBC at AM given elevated WBC at admission
--- NOTE | 2017-04-12 18:08 | NUR ---
PT IS CALM, COOPERATIVE WITH STAFF AND PEERS, AND COMPLIANT WITH UNIT RULES. OFTEN IN MILIEU, INTERACTING WELL WITH OTHERS. MOOD IS STABLE, AFFECT IS FULL RANGE, BUT CAN APPEAR BRIGHT AT TIMES. COMMUNICATION IS ORGANIZED AND APPEARS NORMAL IN ALL RESPECTS, AND APPETITE IS NORMAL. PT DENIES SI AT THIS TIME.
--- NOTE | 2017-04-13 06:11 | NUR ---
PATIENT UP TO BATHROOM SEVERAL TIMES, OTHERWISE SLEPT MOST OF NIGHT.
[2017-04-13 08:03] VITALS: BP 105/71
--- NOTE | 2017-04-13 10:48 | CP SOUTH PROGRESS NOTE PSYCH ---
See Addendum Psych (Inpt) Progress Note Progress Note Include the following elements, when applicable: Involvement in the active treatment of the patient with behavioral observations of the patient and the patient's response to the treatment. Review of the ongoing treatment process in the context of the treatment plan. Indication of how multi-disciplinary staff members are carrying out the treatment plan. Plans for future interventions and recommendations for revision of the treatment plan. Liaison with other physicians/providers. Progress Note: Pt reports no longer has "foggy" feeling with ER formulation of lithium. Notes doing better as a result. Denies SI or HI. Denies AVHs. Current Medications Sig/Maribel Start time Last Medication Dose Route Stop Time Status Admin Acetaminophen 650 MG Q6P PRN 04/13 0915 AC PO Folic Acid 1 MG 04/05 0800 AC 04/13 PO 0820 Gabapentin 300 MG Q6H PRN 04/10 1145 AC 04/10 PO 2335 Gabapentin 300 MG 08,1400 04/09 0800 AC 04/13 PO 0821 Gabapentin 600 MG 04/08 2200 AC 04/12 PO 2120 [place] Carbonate 450 MG AT BEDTIME 04/12 2200 AC 04/12 PO 2120 [place] Carbonate 300 MG 08,04/11 2000 DC 04/12 PO 0821 Melatonin 10 MG .STK-MED ONE 04/12 2115 DC PO 04/12 211 Melatonin 10 MG AT BEDTIME NEED.. 04/11 1845 AC 04/12 PO 2121 Multivitamins 1 TAB 04/05 0800 AC 04/13 PO 0821 Prazosin HCl 4 MG 04/11 2200 AC 04/12 PO 2120 Thiamine HCl 100 MG 04/05 0800 AC 04/13 PO 0821 Triamcinolone 1 JOELLE TID 04/13 1000 AC Acetonide TOP Vital Signs Date Time Temp Pulse Resp B/P B/P Pulse O2 O2 Flow FiO2 Mean Ox Delivery Rate 04/13 0803 96.4 66 105/71 / 2120 62 116/67 / 1946 97.2 62 116/67 / 1943 97.2 62 116/67 / 1617 65 104/74 / 1615 65 104/74 / 1226 61 111/74 04/12 1221 61 111/74 MSE Appears as stated age. Cooperative behavior, good, appropriate eye contact. Nl speech rate and prosody. No psychomotor retardation or agitation. Mood better Affect anxious, constricted, appropriate, non-liable. Linear and goal directed thought process. Denies SI or HI. Does not appear to be responding to internal stimuli. Denies AVHs, paranoia, or delusions. I/J: limited A/P: Pt with unspecified mood disorder and AUD with marked irritabilty and implusivity. - Changed lithium to ER 450mg nightly on 04/12 - Will monitor toe for s/s infection- seen by Medicine - Triamclinolone ordered for tinea pedis at L foot - Otherwise continue meds - Labs ordered for AM - Encourage groups
[2017-04-13 12:07] VITALS: BP 117/68
--- NOTE | 2017-04-13 13:00 | NUR ---
Patient is A&O X 3, compliant with medication and group therapies. Patient is present in the community, interacts with other peers and staff members, report good night sleep and appetite. Patient continue to report pain in her Big toe due to inflammation/fungal infection. She has received order of Triamcinolone ointment 3X/day and first dose has been given monitoring for effect. Patient mood and affect are stable and appropriate, no s/s of disorganized thought, denies thought of self-harm and to someone else.
[2017-04-13 16:15] VITALS: BP 122/75
--- NOTE | 2017-04-13 17:42 | NUR ---
PT IS CALM, COOPERATIVE WITH STAFF AND PEERS, AND COMPLIAMT WITH UNIT RULES. OFTEN IN MILIE[place], INTERACTING WELL WITH OTHERS. MOOD IS STABLE, AFFECT IS EUTHYMIC TO FULL RANGE, COMMUNICATION IS ORGANIZED AND APPEARS NORMAL IN ALL RESPECTS, AND APPETITE IS NORMAL. PT DENIES SI AT THIS TIME.
[2017-04-13 19:50] VITALS: BP 106/68
[2017-04-14 07:46] VITALS: BP 104/69
[2017-04-14] MEDS ORDERED: PRAZOSIN HCL2 M1 PO (09:40)
[2017-04-14] MEDS ORDERED: GABAPENTIN300 M2 PO ×2 (09:42→09:48)
[2017-04-14] MEDS ORDERED: LITHIUM CARBON300 M6 PO (09:43)
--- NOTE | 2017-04-14 10:58 | SOCIAL WORKER PROG NOTE PSYCH ---
Social Work Progress Note Progress Note Called [facility] this morning. They didn't receive my referral on Friday , despite the fax confirmation I had on my end. I also stated I left a couple of messages on Friday, but no one returned my call. The staff member was willing to take Madison's information over the phone and had me refax the referral again. They approved a pickling grader for 10am. I informed Madison and apologized for the fuentes of everything, but this is what they had available for transport today. Madison tried calling Janey Rodriguez Process Helper at [facility], but couldn't reach her. I tried calling as well and got her voicemail, which indicated it was full and not accepting messages.
--- NOTE | 2017-04-14 11:02 | NUR ---
Discharged to [facility] this AM. Mood stable, excited about discharge plan and follow up with [facility] IOP. Denies thoughts to harm herself. Education material reg. Depression, Alcohol abuse and Suicide thoughts given to patient.
--- NOTE | 2017-04-14 12:14 | CP SOUTH PROGRESS NOTE PSYCH ---
Psych (Inpt) Progress Note Progress Note Include the following elements, when applicable: Involvement in the active treatment of the patient with behavioral observations of the patient and the patient's response to the treatment. Review of the ongoing treatment process in the context of the treatment plan. Indication of how multi-disciplinary staff members are carrying out the treatment plan. Plans for future interventions and recommendations for revision of the treatment plan. Liaison with other physicians/providers. Progress Note: PSYCHIATRIST NOTE (DISCHARGE), 04/14/2017: I discussed this patient's progress to date, current mental status, treatment and discharge plans with staff team today in the daily morning ITTM and also met with her again myself in individual session prior to discharging her directly to residence at the [place], [place] and aftercare with [facility], with intake there on 04/24/2017 at 9:30am. Initial serum [employer] level from this morning was 0.6mEq/L and [employer] still well tolerated at a dose of 600mg/day; I will not attempt to increase dose going out the door today with intake set for 10 days from now at [facility] and would recommend level be repeated prior to any consideration of increasing dose above current level. Patient also reports the Neurontin of ongoing help/value in reducing discomfort/ambient anxiety/sleep disturbance and wished to remain on it. She is still not interested in medication for smoking cessation or a specific smoking cessation program, as she has done well on [facility] after refusing cessation medication and does not feel she is at risk for relapse. She was also not interested in medication to reduce craving for alcohol but said she would discuss the subject and reconsider this issue during her intensive outpatient substance abuse (alcohol) rehab ([facility]). Patient is currently cheerful, bright in affect, upbeat in mood but clearly not hypomanic or elated; there is no evidence of suicidal or homicidal ideation, plans, intent or impulses and patient is well aware of her safety plan should she ever in future come to feel herself at acute risk of self-harm or harming others. (for discharge medications, dosages, amounts prescribed and indications, see the discharge summary from this admission in the electronic medical record)
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
== END 2017-04-14 10:26 | DRG 753 ==
LOC: ERH 17:08 → ERHI 04-04 14:57 → CP SOUTH 04-04 14:57 → ENTRNSPT 04-04 16:02 → ENRESERV 04-04 16:16 → CP SOUTH 04-04 16:17 → CMPTRNSPT 04-04 17:23 → CP SOUTH 04-07 09:03 → ENPENDDIS 04-14 11:00
PROVIDERS: Emergency Medicine; ADMIT Psychiatry & Neurology Addiction Medicine
DX: F39 Unspecified mood [affective] disorder (principal)
CPT/HCPCS: 36415; 80307; G0480; J3490